=== PATIENT | male | born 1970 | race Hispanic/Latino ===

== ENCOUNTER 2023-08-27 15:11 | Outpatient (CLI) | payer OTHER | END 2023-08-27 15:12 | disposition home or self-care (01) | LOC: CSHRAD 15:11 | PROVIDERS: ATTEND Internal Medicine Rheumatology | DX: M05.79 Rheumatoid arthritis with rheumatoid factor of multiple sites without organ or systems involvement (principal) | CPT/HCPCS: 71046 ==